=== PATIENT | male | born 1995 | race Two or more races ===

== ENCOUNTER 2023-04-09 08:53 | Emergency (ER) | payer SELFPAY ==
[~2023-04-09] VITALS: Ht 172.7 cm; Wt 89.0 kg
[2023-04-09] MEDS ORDERED: IBUP1TAB5 PO (12:48)
[2023-04-09] MEDS ORDERED: CEPH500C PO (12:48)
[2023-04-09] MEDS ORDERED: BACITRACIN TOP OINT 1 UD PKG TOP ONE (13:00)
[2023-04-09] MEDS ORDERED: NEOMYCIN-BACITRACIN-POLYM UNITDOSE PKG TOP OINT TOP ONE (13:00)
[2023-04-09] MEDS ORDERED: TETANUS-DIPTH-ACEL PERTUSSIS 0.5ML SYR Tdap IM ONE (13:00)
[2023-04-09] MEDS ORDERED: LIDOCAINE 1% (LOCAL ANESTH.) PF 5ml SDV ID ONE (13:00)
[2023-04-09 13:27] VITALS: BP 145/96; PULSE 71; RESP 16; O2SAT 100
== END 2023-04-09 13:56 | disposition home or self-care (01) ==
LOC: ER 08:53
DX: S81.811A Laceration without foreign body, right lower leg, initial encounter (principal); W26.8XXA Contact with other sharp object(s), not elsewhere classified, initial encounter; Y93.89 Activity, other specified; Y92.89 Other specified places as the place of occurrence of the external cause; Y99.8 Other external cause status
CPT/HCPCS: 12002; 90471; 90715